=== PATIENT | female | born 1980 | race Caucasian/White ===

== ENCOUNTER 2017-10-03 08:35 | Emergency (ER) | END 2017-10-03 11:07 | disposition home or self-care (01) ==

== ENCOUNTER 2018-02-13 07:56 | Emergency (ER) | END 2018-02-13 09:21 | disposition home or self-care (01) ==

== ENCOUNTER 2018-04-25 07:11 | Emergency (ER) | END 2018-04-25 08:44 | disposition left against medical advice (07) ==